=== PATIENT | male | born 1955 | race Caucasian/White ===

== ENCOUNTER 2019-02-26 09:24 | Emergency (ER) | payer MEDICARE ==
[~2019-02-26] VITALS: Ht 195.6 cm; Wt 74.0 kg
[2019-02-26 11:13] VITALS: BP 107/62
== END 2019-02-26 13:14 | disposition home or self-care (01) ==
LOC: ED 13:08
DX: K40.91 Unilateral inguinal hernia, without obstruction or gangrene, recurrent (principal); F10.129 Alcohol abuse with intoxication, unspecified
CPT/HCPCS: 36415; 76870; 80048; 80307; 81003; 82040; 82140; 85025; 99284

== ENCOUNTER 2019-02-26 13:51 | Emergency (ER) | payer MEDICARE | END 2019-02-26 14:17 | disposition left against medical advice (07) | LOC: ED 14:12 | DX: R68.89 Other general symptoms and signs (principal); Z53.21 Procedure and treatment not carried out due to patient leaving prior to being seen by health care provider ==